=== PATIENT | male | born 2000 | race Caucasian/White ===

== ENCOUNTER 2020-10-05 10:11 | Emergency (ER) | payer SELFPAY ==
--- NOTE | 2020-10-05 10:15 | PCM.EKG ---
#1 Interpretation EKG Date: 10/05/20 Time: 10:11 Rhythm: NSR Rate (Beats/Min): 80 [place]: Normal P-Wave: Present QRS: Normal ST-T: Normal QT: Normal ID/PQ Interval: 141 Comparison: NA - No Prior EKG EKG Interpretation Comments: normal EKG, no ischemic changes
[2020-10-05] MEDS ORDERED: Ketorolac 60 MG/2 ML SDV IM ONE (10:26)
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
[2020-10-05 11:11] LABS: BLOOD UREA NITROGEN,BUN 10 mg/dL (7.0-18.0); CARBON DIOXIDE,CO2 25.5 mmol/L (21.0-32.0); CHLORIDE,CL 105 mmol/L (98-107); GLUCOSE RANDOM 87 mg/dL (74-106); LIPASE 71 U/L (73-393); POTASSIUM,K 3.7 mmol/L (3.5-5.1); SODIUM,NA 140 mmol/L (136-148)
--- NOTE | 2020-10-05 11:17 | CR ---
INDICATION: Chest pain. TECHNIQUE: Chest 1 view. COMPARISON: None FINDINGS: Cardiovascular and mediastinum: Heart size and vasculature are normal in caliber and appearance. Mediastinum is within normal limits. Lungs and pleural space: Lungs are clear. No sign of infiltrate or mass. No sign of pleural effusion. No pneumothorax. Bones and soft tissues: No significant findings. IMPRESSION: Lungs are clear. Dictated by Bc Hewitt MD @ 10/05/2020 11:15:[address] Bc Hewitt @ Oct 05 2020 11:15AM
--- NOTE | 2020-10-05 11:19 | CR ---
INDICATION: Generalized knee pain. TECHNIQUE: Left knee, four views COMPARISON: None FINDINGS: Bones: Alignment is normal. No fractures or bone lesions. Accessory ossicle, potentially a fabella, which appears well corticated. Joint spaces: Unremarkable. Soft tissues: Unremarkable. IMPRESSION: 1. No acute bone abnormality. 2. Joint spaces are preserved. Dictated by Bc Hewitt MD @ 10/05/2020 11:17:[address] Bc Hewitt @ Oct 05 2020 11:17AM
== END 2020-10-05 11:57 | disposition home or self-care (01) ==
LOC: MW.ED 10:11
DX: R07.89 Other chest pain (principal); M25.562 Pain in left knee; Z72.0 Tobacco use
CPT/HCPCS: 36415; 71045; 73562; 80053; 83690; 84484; 85025; 86592; 93005; 96372; 99285; J1885